=== PATIENT | male | born 1930 | race Two or more races ===

== ENCOUNTER 2017-10-10 11:30 | Inpatient (IN) | payer OTHER ==
[~2017-10-10] VITALS: Ht 162.6 cm; Wt 81.6 kg
[~2017-10-10 11:30] MED LIST: ALPRAZOLAM0.5 MG PO; ASA81 MG PO; COZAAR25 MG PO; LIPITOR40 MG PO; PAXIL20 MG PO; ROCALTROL0.25 MCG PO; TOPROL XL50 MG PO
[2017-10-10] MEDS ORDERED: ASA81 MG PO (12:49)
[2017-10-10] MEDS ORDERED: DEPAKOTE ER500 MG PO (12:49)
[2017-10-10] MEDS ORDERED: TOPROL XL50 M1 PO (12:50)
[2017-10-10] MEDS ORDERED: ZYPREXA10 MG PO (12:50)
[2017-10-10] MEDS ORDERED: CLONAZEPAM2 M1 PO (12:53)
[2017-10-10] MEDS ORDERED: DOXYCYCLINE HY100 MG PO (12:55)
[2017-10-10] MEDS ORDERED: TRAZODONE HCL100 MG PO (12:55)
[2017-10-26] MEDS ORDERED: CLONAZEPAM0.5 MG PO (16:08)
[2017-10-26] MEDS ORDERED: ACID REDUCER20 MG PO (16:08)
[2017-10-26] MEDS ORDERED: TOPROL XL50 M1 PO (16:08)
[2017-10-26] MEDS ORDERED: ASA81 MG PO (16:08)
== END 2017-10-26 16:55 | DRG 177 ==
LOC: ER 11:30 → MEDI 12:29 → ICU 12:29 → ICU-2 14:45 → ICU 16:55 → SURH 10-21 14:50
PROC: 3E0F7GC Introduction of Other Therapeutic Substance into Respiratory Tract, Via Natural or Artificial Opening (ICD-10-PCS; principal; 2017-10-10)
PROC: 4A033R1 Measurement of Arterial Saturation, Peripheral, Percutaneous Approach (ICD-10-PCS; 2017-10-10)
PROC: B020ZZZ Computerized Tomography (CT Scan) of Brain (ICD-10-PCS; 2017-10-10)
PROC: 3E0336Z Introduction of Nutritional Substance into Peripheral Vein, Percutaneous Approach (ICD-10-PCS; 2017-10-11)
PROC: BB24ZZZ Computerized Tomography (CT Scan) of Bilateral Lungs (ICD-10-PCS; 2017-10-11)
PROC: 02HV33Z Insertion of Infusion Device into Superior Vena Cava, Percutaneous Approach (ICD-10-PCS; 2017-10-12)
PROC: 8E0ZXY6 Isolation (ICD-10-PCS; 2017-10-21)
DX: J69.0 Pneumonitis due to inhalation of food and vomit (principal); G92 Toxic encephalopathy; A41.1 Sepsis due to other specified staphylococcus; B37.0 Candidal stomatitis; I25.10 Atherosclerotic heart disease of native coronary artery without angina pectoris; I11.9 Hypertensive heart disease without heart failure; I27.29 Other secondary pulmonary hypertension; Z95.0 Presence of cardiac pacemaker; Z85.53 Personal history of malignant neoplasm of renal pelvis; T42.6X1A Poisoning by other antiepileptic and sedative-hypnotic drugs, accidental (unintentional), initial encounter; Y92.89 Other specified places as the place of occurrence of the external cause; F41.8 Other specified anxiety disorders; B96.4 Proteus (mirabilis) (morganii) as the cause of diseases classified elsewhere; R09.02 Hypoxemia; Z78.1 Physical restraint status; Z74.01 Bed confinement status; L89.522 Pressure ulcer of left ankle, stage 2

== ENCOUNTER 2017-12-22 15:19 | Inpatient (IN) | payer OTHER ==
[~2017-12-22] VITALS: Ht 165.1 cm; Wt 81.6 kg
[~2017-12-22 15:19] MED LIST changes: +ACID REDUCER20 MG PO; +CLONAZEPAM0.5 MG PO; +CLONAZEPAM2 M1 PO; +DEPAKOTE ER500 MG PO; +DOXYCYCLINE HY100 MG PO; +TOPROL XL50 M1 PO; +TRAZODONE HCL100 MG PO; +ZYPREXA10 MG PO
[2018-01-08] MEDS ORDERED: CLONAZEPAM0.5 MG PO (13:08)
[2018-01-08] MEDS ORDERED: ACID REDUCER20 MG PO (13:08)
[2018-01-08] MEDS ORDERED: PYRIDOXINE HCL100 M1 PO (13:08)
[2018-01-08] MEDS ORDERED: INTEGRA F CAPS1 EACH PO (13:08)
[2018-01-08] MEDS ORDERED: ASA81 MG PO (13:08)
[2018-01-08] MEDS ORDERED: LOSARTAN POTASS25 MG PO (13:08)
[2018-01-08] MEDS ORDERED: TOPROL XL50 M1 PO (13:08)
[2018-01-08] MEDS ORDERED: CYMBALTA30 MG PO (13:08)
== END 2018-01-08 17:42 | disposition home health service (06) | DRG 571 ==
LOC: ER 15:19 → SURG 18:30 → SEC-K 18:30 → MEDI 18:53 → SURG 18:53
PROVIDERS: Surgery
PROC: 30233N1 Transfusion of Nonautologous Red Blood Cells into Peripheral Vein, Percutaneous Approach (ICD-10-PCS; 2017-12-22)
PROC: 0J990ZZ Drainage of Buttock Subcutaneous Tissue and Fascia, Open Approach (ICD-10-PCS; 2017-12-23)
PROC: 0JB90ZZ Excision of Buttock Subcutaneous Tissue and Fascia, Open Approach (ICD-10-PCS; principal; 2017-12-23 15:00)
PROC: B54NZZZ Ultrasonography of Left Upper Extremity Veins (ICD-10-PCS; 2017-12-25)
PROC: 4A033R1 Measurement of Arterial Saturation, Peripheral, Percutaneous Approach (ICD-10-PCS; 2017-12-27)
PROC: 4A12X4Z Monitoring of Cardiac Electrical Activity, External Approach (ICD-10-PCS; 2017-12-27)
PROC: 3E0F7GC Introduction of Other Therapeutic Substance into Respiratory Tract, Via Natural or Artificial Opening (ICD-10-PCS; 2018-01-03)
PROC: B54NZZZ Ultrasonography of Left Upper Extremity Veins (ICD-10-PCS; 2018-01-04)
DX: L02.31 Cutaneous abscess of buttock (principal); N39.0 Urinary tract infection, site not specified; J98.11 Atelectasis; F05 Delirium due to known physiological condition; N17.8 Other acute kidney failure; E27.49 Other adrenocortical insufficiency; E86.0 Dehydration; D50.8 Other iron deficiency anemias; F03.90 Unspecified dementia, unspecified severity, without behavioral disturbance, psychotic disturbance, mood disturbance, and anxiety; Z74.01 Bed confinement status; I25.10 Atherosclerotic heart disease of native coronary artery without angina pectoris; I11.9 Hypertensive heart disease without heart failure; B95.62 Methicillin resistant Staphylococcus aureus infection as the cause of diseases classified elsewhere; Z85.528 Personal history of other malignant neoplasm of kidney; Z88.0 Allergy status to penicillin; B35.6 Tinea cruris; B96.4 Proteus (mirabilis) (morganii) as the cause of diseases classified elsewhere; I80.8 Phlebitis and thrombophlebitis of other sites; K29.60 Other gastritis without bleeding; K29.80 Duodenitis without bleeding; F41.8 Other specified anxiety disorders; L89.612 Pressure ulcer of right heel, stage 2; L89.152 Pressure ulcer of sacral region, stage 2